=== PATIENT | male | born 1940 | race Caucasian/White ===

== ENCOUNTER 2019-06-23 11:02 | Inpatient (IN) | payer OTHER ==
[~2019-06-23] VITALS: Ht 165.1 cm; Wt 63.0 kg
[2019-06-23] MEDS ORDERED: NAMENDA5 MG (11:13)
[2019-06-23] MEDS ORDERED: NUPLAZID34 MG (11:14)
[2019-06-23] MEDS ORDERED: DONEPEZIL HCL OD5 MG (11:14)
== END 2019-06-25 19:14 | disposition home or self-care (01) | DRG 311 ==
LOC: ER 11:02 → MEDJ 19:54
PROVIDERS: ADMIT Internal Medicine
PROC: B020ZZZ Computerized Tomography (CT Scan) of Brain (ICD-10-PCS; principal; 2019-06-23)
PROC: 4A12X4Z Monitoring of Cardiac Electrical Activity, External Approach (ICD-10-PCS; 2019-06-23)
DX: I20.0 Unstable angina (principal); Q21.0 Ventricular septal defect; I10 Essential (primary) hypertension; G31.1 Senile degeneration of brain, not elsewhere classified; E78.49 Other hyperlipidemia; R53.1 Weakness; F02.80 Dementia in other diseases classified elsewhere, unspecified severity, without behavioral disturbance, psychotic disturbance, mood disturbance, and anxiety; R07.9 Chest pain, unspecified